=== PATIENT | female | born 1945 | race Caucasian/White ===

== ENCOUNTER → 2017-01-15 | Outpatient (CLI) | payer OTHER, MEDICARE ==
[~2017-01-15] MED LIST: ACETAMINOPHEN325 M1 PO; AMARYL4 MG PO; AMITRIPTYLINE H10 M1 PO; ASPIR-TRIN325 MG PO; ASPIRIN EC81 M1 PO; CLEOCIN HCL150 MG PO; EFFEXOR 5050 MG/1 T1; EFFEXOR XR75 MG PO; EFFIENT10 MG; EFFIENT10 MG PO; GABAPENTIN 100100 MG PO; GLIMEPIRIDE4 MG PO; GLUCOPHAGE XR750 MG PO; GLUCOPHAGE1000 MG PO; HYDROCODON-ACE1 EAC7 PO; IMDUR 30 MG TAB30 M1 PO; INVOKANA100 MG PO; ISOSORBIDE DINI30 MG PO; ISOSORBIDE MONO30 M1 PO; LANOXIN 0.120.125 M2 PO; LEVAMIR; LEVEMIR SUBQ; LEVOTHYROXIN0.112 M1 PO; LISINOPRIL10 MG PO; LOPRESSOR 50 MG50 M1 PO; LOVAZA1000 MG; NITROGLYCERIN0.4 MG PO; PLAVIX 75 MG TA75 M1 PO; SIMVASTATIN40 MG PO; TOBREX3.5 GM OPHTHALMIC; TOPROL XL50 MG PO; TRIAMTERENE-HC1 EAC1 PO; VENLAFAXINE HCL75 M2 PO
== END ==
LOC: RAD 12-19 14:05
DX: Z12.31 Encounter for screening mammogram for malignant neoplasm of breast (principal)